=== PATIENT | male | born 1960 ===

== ENCOUNTER 2021-05-12 23:38 | Emergency (ER) | payer OTHER ==
[2021-05-12 23:45] VITALS: RESP 18
[2021-05-13 01:17] VITALS: BP 138/77; PULSE 60; TEMP 97.6
--- NOTE | 2021-05-13 01:35 | ED ---
General Adult HPI - General Chief complaint: Recheck/Abnormal Lab/Rx Stated complaint: Covid Test Source: patient Mode of arrival: ambulatory Limitations: no limitations - History of Present Illness Initial comments: Patient here for covid test, refused medical examination - Related Data Allergies Allergy/AdvReac Type Severity Reaction Status Date / Time No Known Allergies Allergy Verified 05/12/21 23:45 Review of Systems ROS Statement: Those systems with pertinent positive or pertinent negative responses have been documented in the HPI. ROS Other: All systems not noted in ROS Statement are negative. Past Medical History Past Medical History: Hypertension Additional Past Medical History / Comment(s): cholestrol, thyroid History of Any Multi-Drug Resistant Organisms: None Reported Additional Past Surgical History / Comment(s): tyroid,. carpal tunnel. Past Psychological History: No Psychological Hx Reported Smoking Status: Never smoker Past Alcohol Use History: Occasional Past Drug Use History: None Reported General Exam Limitations: no limitations Course Vital Signs 05/12/21 05/13/21 23:42 01:16 Temperature 97.4 F L 97.6 F Pulse Rate 61 60 Respiratory 18 18 Rate Blood Pressure 147/80 138/77 O2 Sat by Pulse 99 99 Oximetry Medical Decision Making - Lab Data Lab Results 05/13/21 Range/Units 00:01 Coronavirus (PCR) Not Detected (Not Detectd) Disposition Clinical Impression: Lab test negative for COVID-19 virus Disposition: HOME SELF-CARE Is patient prescribed a controlled substance at d/c from ED?: No Referrals: None,Stated [Primary Care Provider] - 1-2 days Time of Disposition: 01:34
== END 2021-05-13 01:42 | disposition home or self-care (01) ==
LOC: EC 23:38
DX: Z20.822 Contact with and (suspected) exposure to COVID-19 (principal)
CPT/HCPCS: 87635; 99282